=== PATIENT | female | born 1965 ===

== ENCOUNTER 2017-09-30 14:17 | Inpatient (IN) | payer MEDICAID ==
[~2017-09-30] VITALS: Ht 154.9 cm; Wt 100.0 kg
--- NOTE | ~2017-09-30 | HEMODYNAMI ---
PATIENT:CANDELAIRO FRANCOIS MEDICAL RECORD: [id number] : 69 LOCATION:[facility]# [id number] ADMISSION DATE: 09/30/17 Generatedon:09/30/201715:25 Patient name: CANDELARIO FRANCOIS Patient #: [id number] SSN: D OB: 1965 Date of study: 09/30/2017 Page: Of Hemodynamic Procedure Report Patient Data Patient Demographics Procedure consent was obtained First Name: CANDELARIO Gender: Female Last Name: PRISCILA : 1965 Patient #: [id number] Age: 52 year(s) Race: Unknown Additional ID: [id number] Contact details [address]: [address] [place] [address] State: [place] City: [place] Zip code: [address] Admission Admission Data Admission Date: 09/30/2017 Admission Time: 14:50 Room #: [facility] Procedure Procedure Types Cath Procedure Diagnostic Procedure [facility] w/Coronaries Procedure Description Procedure Date Procedure Date: 09/30/2017 Procedure Start Time: 15:04 Procedure End Time: 15:21 Procedure Staff Name Function Mikhail Nicole MD Performing Physician Hailey Pino RT Monitor Nava Stark RT Scrub Eulalio Christine RN Nurse Procedure Data Cath Procedure Fluoroscopy Diagnostic fluoroscopy Total fluoroscopy Time: 5.7 time: 5.7 min min Diagnostic fluoroscopy Total fluoroscopy dose: 729 dose: 729 mGy mGy Contrast Material Contrast Material Type Amount (ml) Isovue 300 55 Entry Location Entry Primary Successful Side Size Upsize Upsize Entry Closure [place] ccessful Closure Location (Fr) 1 (Fr) 2 (Fr) Remarks Device Remarks Radial Right 6 Fr Mechanical artery Short Compression Estimated blood loss: 5 ml Diagnostic catheters Device Type Used For End Catheter Placement DIAGNOSTIC [place] 110cm 5 Multi-vessel Fr catheter ([id number]) Angiography Procedure Complications No complications Procedure Medications Medication Administration Route Dosage Oxygen etCO2 Nasal cannula 2 l/min Heparin Flush Bag added to field 2 bags (1000units/500ml NS) 0.9% NaCl I.V. 100 ml/hr Radial Cocktail added to field 1 syringe (Verapomil 2mg/Nitro 400mcg/Heparin 1500units) Fentanyl I.V. 50 mcg Versed I.V. 1 mg Benadryl I.V. 50 mg Radial Cocktail I.A. 1 syringe (Verapomil 2mg/Nitro 400mcg/Heparin 1500units) Fentanyl I.V. 50 mcg Versed I.V. 1 mg Hemodynamics Rest Heart Rate: 70 (bpm) Pressure Samples Time Site Value (mmHg) Purpose Heart Use Rate(bpm) 15:08 LV 112/8,11 EDP 77 15:08 AO 132/100(115) Pullback 94 Gradients Valve Time Site Site 2 Mean SEP/DFP Peak To Heart Use 1 (mmHg) (sec/min) Peak Rate (mmHg) (bpm) Aortic 15:08 LV AO 94 132/100(115) Snapshots Pre Cath Intra NCS Post Cath Vital Signs Time Heart Resp SPO2 etCO2 NIBP (mmHg) Rhythm Pain Sedation Rate (ipm) (%) (mmHg) Status Level (bpm) 15:00:48 71 18 99 0 160/102(148) NSR 0 (11) 10(A) , No pain 15:05:36 76 17 95 0 123/90(107) NSR 0 (11) 10(A) , No pain 15:10:25 81 16 86 0 133/87(114) NSR 0 (11) 9(A) , No pain 15:15:14 83 16 97 0 133/83(105) NSR 0 (11) 9(A) , No pain 15:20:03 79 16 99 0 132/87(115) NSR 0 (11) 9(A) , No pain Medications Time Medication Route Dose Verified Delivered Reason Notes Effectiveness by by 15:00:51 Oxygen etCO2 2 l/min Mikhail Tsai Nasal Bonnie Christine RN cannula 15:01:01 Heparin Flush added 2 bags Mikhail Tsai used for Bag to Bonnie Christine RN procedure (1000units/500ml field [place]AP[place]AN NS) 15:02:01 0.9% NaCl I.V. 100 Mikhail Eulalio Per ml/hr Bonnie Christine RN physician 15:02:09 Radial Cocktail added 1 Mikhail Eulalio used for (Verapomil to syringe Bonnie Christine RN procedure 2mg/Nitro field [place] 400mcg/Heparin 1500units) 15:04:00 Fentanyl I.V. 50 mcg Mikhail Eulalio for sedation Bonnie Christine RN, MD 15:04:07 Versed I.V. 1 mg Mikhail Eulalio for sedation Bonnie Christine RN, MD 15:07:05 Benadryl I.V. 50 mg Mikhail Eulalio Per Bonnie Christine RN physician 15:08:23 Radial Cocktail I.A. 1 Mikhail Mikhail for (Verapomil syringe Bonnie Nicole MD vasodilation 2mg/Nitro 400mcg/Heparin 1500units) 15:08:32 Fentanyl I.V. 50 mcg Mikhail Eulalio for sedation Bonnie Christine RN, MD 15:08:35 Versed I.V. 1 mg Mikhail Eulalio for sedation Bonnie Christine RN, MD Procedure Log Time Note 14:40:37 Eulalio Christine RN sent for patient. Start room use. 14:47:28 Signed procedure consent form obtained from patient. 14:47:32 H&P Date Dictated: 09/30/2017 ER History on chart.. 14:47:38 Time tracking: Call back (After hours or weekends) 14:47:47 Plan of Care:Hemodynamics will remain stable., Cardiac rhythm will remain stable., Comfort level will be maintained., Respiratory function will remain adequate., Patient/ family verbilizes understanding of procedure., Procedure tolerated without complication., Recovers from procedure without complications.. 14:52:10 Patient received from ED to CCL 1 Alert and oriented. Tansferred to table in Supine position. 14:52:11 Warm blankets applied, and simona hugger turned on for patient comfort. 14:52:12 Correct patient and procedure confirmed by team. 14:52:14 ECG and BP/O2 sat monitors applied to patient. 14:59:40 Vital chart was started 14:59:42 Baseline sample Acquired. 14:59:46 Rhythm: sinus rhythm 14:59:47 Full Disclosure recording started 14:59:47 Pre-procedure instructions explained to patient. 14:59:48 Pre-op teaching completed and patient verbalized understanding. 14:59:50 Family in waiting room. 14:59:54 Patient NPO since Midnight. 14:59:58 Is the patient allergic to Iodine/contrast media? No. 14:59:59 Was the patient premedicated? No 15:00:10 Is patient on blood thinner?Yes 15:00:13 ACC The patient was administered the following blood thiners within the last 24 hours: ACCPlavix 15:00:15 Patient diabetic? Yes. 15:00:16 If diabetic: On Metformin? Yes 15:00:19 If on Metformin: Last Dose? 09/29/2017 15:00:21 Previous problem with sedation/anesthesia? No ? 15:00:23 Snore? Yes 15:00:24 Sleep apnea? Yes 15:00:25 Deviated septum? No 15:00:26 Opens mouth fully? Yes 15:00:27 Sticks out tongue? Yes 15:00:51 Oxygen 2 l/min etCO2 Nasal cannula was administered by Eulalio Christine RN; ; 15:01:01 Heparin Flush Bag (1000units/500ml NS) 2 bags added to field was administered by Eulalio Christine RN; used for procedure; 15:02: 0.9% NaCl 100 ml/hr I.V. was administered by Eulalio Christine RN; Per physician; 15:02:09 Radial Cocktail (Verapomil 2mg/Nitro 400mcg/Heparin 1500units) 1 syringe added to field was administered by Eulalio Christine RN; used for procedure; 15:04:00 Fentanyl 50 mcg I.V. was administered by Eulalio Christine RN; for sedation; 15:04:05 Airway obstruction? No ? 15:04:07 Versed 1 mg I.V. was administered by Eulalio Christine RN; for sedation; 15:04:08 Dentures? No ? 15:04:11 Pre procedure: right dorsailis pedis pulse 2+ Normal; easily identifiable; not easily obliterated 15:04:14 Pre procedure: left dorsailis pedis pulse 2+ Normal; easily identifiable; not easily obliterated 15:04:18 Patient pain scale 0/10 ?. 15:04:24 IV patent on arrival in right antecubital with 0.9% NaCl at [facility]. 15:04:27 Lab results completed and on chart. 15:04:28 Alarms reviewed by RAllegra NAllegra 15:04:29 Sharps counted by scrub and verified by R.N. 15:04:30 Physician arrived 15:04:30 --------ALL STOP TIME OUT------ 15:04:31 Final Timeout: patient, procedure, and site verified with staff and physician. All members of the team are in agreement. 15:04:33 Right Radial & Right Groin site verified by team. 15:04:36 Physical assessment completed. ASA score P 2 - A patient with mild systemic disease as per Mikhail Nicole MD. 15:04:40 Sedation plan: IV Moderate Sedation Medication:Versed, Fentanyl 15:04:43 Use device set Radial Dx or PCI 15:04:44 ACIST Syringe (02718) opened to sterile field. 15:04:44 Medline Cath Pack ([id number]) opened to sterile field. 15:04:44 Bag Decanter (2002S) opened to sterile field. 15:04:45 DIAGNOSTIC WIRE .035 260cm J wire (240826) opened to sterile field. 15:04:45 ACIST Hand Control (30949) opened to sterile field. 15:04:46 ACIST Manifold (70669) opened to sterile field. 15:04:46 Tegaderm 4 x 4 (1626W) opened to sterile field. 15:04:47 MBrace Wrist Support ([id number]) opened to sterile field. 15:04:48 SHEATH 6Fr Prelude Radial ([id number]) opened to sterile field. 15:04:52 Procedure started. 15:04:56 Local anesthetic to right radial artery with Lidocaine 2% by Mikhail Nicole MD.INITIAL ACCESS ONLY 15:05:06 A 6 Fr Short sheath was inserted into the Right Radial artery 15:06:02 BMW 190cm Maynard 2 J wire ([id number]) opened to sterile field. 15:06:03 INFLATOR Merit BasixCompak (UU2745) opened to sterile field. 15:06:43 A DIAGNOSTIC [place] 110cm 5 Fr catheter (958055) was advanced over the wire and used for Multi-vessel Angiography. 15:07:05 Benadryl 50 mg I.V. was administered by Eulalio Christine RN; Per physician; 15:08:09 LV hemodynamics recorded. 15:08:11 LV gram done using SIMMS 15:08:15 Injector settings: Ml/sec: 12, Volume: 8, 15:08:23 Radial Cocktail (Verapomil 2mg/Nitro 400mcg/Heparin 1500units) 1 syringe I.A. was administered by Mikhail Nicoel MD; for vasodilation; 15:08:29 EF : 40 % 15:08:32 Fentanyl 50 mcg I.V. was administered by Eulalio Christine RN; for sedation; 15:08:35 Versed 1 mg I.V. was administered by Eulalio Christine RN; for sedation; 15:09:40 COPILOT Valve Control (5473781) opened to sterile field. 15:09:50 RCA angiography performed. 15:09:53 Injector settings: Ml/sec: 3, Volume: 6, 15:12:25 Catheter removed. 15:12:57 GUIDE 6FR EBU 3.0 SH catheter ([id number]) opened to sterile field. 15:13:07 6 Fr EBU 3.5 SH guide catheter was inserted over the wire 15:15:08 LCA angiography performed. 15:15:11 Injector settings: Ml/sec: 3, Volume: 6, 15:17:41 Catheter removed. 15:17:52 TR BAND Standard ([id number]) opened to sterile field. 15:18:32 Sheath removed intact; hemostasis achieved with Mechanical Compression to the Right Radial artery. 15:18:34 Procedure ended.(Physican Out) 15:18:52 Fluoroscopy time 05.70 minutes. 15:19:00 Fluoroscopy dose: 729 mGy 15:19:00 Flurop Dose total: 729 15:19:28 Contrast amount:Isovue 300 55ml. 15:19:31 Sharps counted by scrub and verified by R.N. 15:19:43 Insertion/operative site no bleeding no hematoma. 15:19:49 Post right radial artery:stable 15:19:51 Post Procedure Pulses reassessed and unchanged 15:19:53 Post procedure rhythm: unchanged. 15:19:56 Estimated blood loss: 5 ml 15:20:04 Post procedure instruction explained to patient.Patient verbalizes understanding. 15:20:05 Patient needs reinforcement of post procedure teaching. 15:21:05 Procedure type changed to Cath procedure, Diagnostic procedure, LHC, LHC w/Coronaries 15:21:07 Procedure and supply charges have been captured, reviewed, submitted and are correct. 15:21:12 Procedure Complication : No complications 15:21:20 Vital chart was stopped 15:21:21 See physician's report for complete and final results. 15:21:25 Report given to PCU. 15:21:28 Patient transfered to PCU with Stretcher. 15:21:30 Procedure ended. 15:21:30 Full Disclosure recording stopped 15:21:34 End room use (Document Last) Device Usage Item Name Manufacture Quantity Catalog Number Hospital Part Current M inimal Lot# / Charge Number Stock Stock Serial# Code ACIST Syringe Acist 1 17744 147591 799413 990424 2 0 (89491) Medical Systems Inc Medline Cath Cardinal 1 [id number] [id number] 41221 059985 5 GeoPage ([id number]) Bag Decanter Microtek 1 2001S 499996 55893 300350 5 () Medical Inc. DIAGNOSTIC WIRE [place] 1 679552 082044 727121 843544 3 0 .035 260cm J wire (382905) ACIST Hand Acist 1 22102 898828 343523 869424 5 Control (73322) Medical Systems Inc ACIST Manifold Acist 1 37820 519346 164284 383734 5 (71957) Medical Systems Inc Tegaderm 4 x 4 3M 1 1626W 186291 890887 479420 5 (1626W) MBrace Wrist Advanced 1 140-0250-00 854708 78900 121594 5 Support Vascular (444003598) Dynamics SHEATH 6Fr Merit 1 [id number] 443191 756973 204330 5 Prelude Radial Medical ([id number]) BMW 190cm Torres 1 [id number] 926429 17787 520698 5 Maynard 2 J Vascular wire (4059233K) INFLATOR Merit Merit 1 IL0255 973117 131123 459530 1 5 Jovie Medical (SL4795) DIAGNOSTIC Terumo 1 98-2908 704028 656910 021726 5 [place] 110cm 5 Fr catheter (571025) COPILOT Valve Torres 1 7894527 909870 860912 607046 5 Control Vascular (0859543) GUIDE 6FR EBU Medtronic 1 [id number] 417606 44683 894109 0 3.0 SH catheter ([id number]) TR BAND Terumo 1 [id number] 583120 870938 371402 4 0 Standard ([id number]) Signature Audit [place] Stage Time Signature Unsigned Intra-Procedure 09/30/2017 Hailey Pino 3:25:17 PM RT(R) Signatures Monitor : Hailey Pino RT Signature : Date : Time : [place] [id number] [place] [address]
--- NOTE | ~2017-09-30 | EC ---
PATIENT:CANDELARIO FRANCOIS DATE OF SERVICE: 09/30/17 SEX: F MEDICAL RECORD: [id number] DATE OF : 69 LOCATION:D.M2 D.212 AGE OF PATIENT: 52 ADMISSION DATE: 09/30/17 REFERRING PHYSICIAN: INTERPRETING PHYSICIAN: FERMIN HAYWARD MD ECHOCARDIOGRAM REPORT ECHO CHARGES 4 ECHO COMPLETE Date: 10/01 CLINICAL DIAGNOSIS: STEMI ECHOCARDIOGRAPHIC MEASUREMENTS (adult normal given) AC root (d.<3.7cm) 3.7 cm LV Septum d (<1.2 cm> 1.3 cm Valve Excursion 1.6 cm LV Septum (systole) 1.6 cm Left Atria (s.<4.0cm> 3.8 cm LVPW d(<1.2cm) 1.3 cm RV (d.<2.3cm) 3.6 cm LVPW (sytole) 1.6 cm LV diastole(<5.6CM) 5.1 cm MV E-F(>70mm/sec) cm LV systole 3.4 cm LVOT Diameter 1.8 cm MV exc.(>10mm) cm Est.ejection fraction (50-75%) % DOPPLER: LVIT cm/sec A 88.0 cm/sec E 75.0 cm/sec LA cm/sec RVSP 28 mmHg LVOT 98 cm/sec AOP1/2T m/s Asc. Ao 128 cm/sec RVOT 637 cm/sec RA cm/sec PA 90 cm/sec AV Gradient Peak 6.51 mmHg AV Mean 2.77 mmHg AV Area 2.2 cm MV Gradient Peak 4.85 mmHg MV Mean 1.99 mmHg MV Area cm COMMENTS: Mechanical Assembly: 2 RAAD MACE Steam Gigger: 4 Dr. Hayward TAPE# PACS Pericardial Effusion N DATE OF SERVICE: PROCEDURE: Transthoracic echocardiogram. FINDINGS: 1. There is moderate left ventricular hypertrophy, inflow characteristics consistent with diastolic dysfunction, ejection fraction of 60% to 65%. 2. The left atrium is normal size, shape, structure, and function. 3. Aortic valve is normal. 4. The mitral valve is normal. ECHOCARDIOGRAM REPORT [id number] CANDELARIO FRANCOIS 5. The tricuspid valve has trace tricuspid regurgitation. RVSP is 28 mmHg. 6. The right ventricle is mild to moderately dilated with normal function. 7. The right atrium appears to be upper limits of normal to mildly dilated. 8. Pulmonic valve is normal. CONCLUSIONS: The patient has no evidence of significant regional wall motion abnormalities, despite the STEMI diagnosis, and had overall normal heart function with evidence of mild hypertensive heart disease. TRANSINT:[id number] Voice Confirmation ID: [id number] DOCUMENT ID: [id number] FERMIN HAYWARD MD at 0927 CC: [id number] DICTATION DATE: 10/02/17826 SENIOR TECHNOLOGIST: 10/02/17 1230 DIS IN 10/01/17 [facility] [address] [place] [address]
[2017-09-30] MEDS ORDERED: LEVOXYL25 MCG PO (14:39)
[2017-09-30] MEDS ORDERED: ZESTRIL10 MG PO (14:39)
[2017-09-30] MEDS ORDERED: HYDROCHLOROTHIA25 MG PO (14:39)
[2017-09-30] MEDS ORDERED: BAYER CHEWABLE81 MG PO (14:40)
[2017-09-30] MEDS ORDERED: HYDROCODON-ACE1 EAC7 PO (14:40)
[2017-09-30] MEDS ORDERED: PLAVIX75 MG PO (14:41)
[2017-09-30 14:52] LABS: BASOPHILS 0.3 % (0-2); HEMATOCRIT 42.1 % (36.0-48.0); HEMOGLOBIN 13.6 g/dL (12-16); IMMATURE GRANULOCYTES 0.4 % (0-5); LYMPHOCYTES 18.4 % (15-50); MCH 25.7 pg (26.0-34.0); MCHC 32.3 g/dL (31.0-37.0); MCV 79.4 fL (80.0-100.0); MEAN PLATELET VOLUME 11.4 fL (7.4-10.4); MONOCYTES 4.3 % (2-11); NEUTROPHILS 75.6 % (40-80); PLATELET COUNT 284 10x3/uL (130-400); RDW 16.5 % (11.5-14.5)
[2017-09-30 15:00] LABS: INR 0.97 (0.85-1.17); PROTIME 12.5 SECONDS (11.6-15.0)
[2017-09-30 15:05] LABS: ALBUMIN 3.5 g/dL (3.4-5.0); ALKALINE PHOSPHATASE 101 U/L (46-116); ALT (SGPT) 34 U/L (10-68); CALC OSMOLALITY 279 mosm/kg (275-300); CALCIUM 8.6 mg/dL (8.5-10.1); CARBON DIOXIDE 30.3 mmol/L (21.0-32.0); CHLORIDE - SERUM 104 mmol/L (98-107); CREATININE - SERUM 0.7 mg/dL (0.6-1.3); GLUCOSE 123 mg/dL (74-106); POTASSIUM - SERUM 4.3 mmol/L (3.5-5.1); PROTEIN - SERUM 7.3 g/dL (6.4-8.2); SODIUM 140 mmol/L (136-145); UREA NITROGEN 13 mg/dL (7-18); eGFR NON AFRICAN AMERICAN > 90 mL/min (90-120)
[2017-09-30 15:21] LABS: CKMB 5.2 U/L (0.0-3.6)
[2017-09-30 15:25] LABS: TROPONIN-I 3.118 ng/mL (0.000-0.060)
[2017-09-30 16:25] VITALS: BP 131/82; Ht 154.9 cm; Wt 100.0 kg
[2017-09-30 20:30] VITALS: BP 134/86
[2017-10-01 04:30] VITALS: BP 148/94
[2017-10-01 08:46] VITALS: BP 140/95
[2017-10-01 10:04] LABS: HEMATOCRIT 41.1 % (36.0-48.0); HEMOGLOBIN 13.5 g/dL (12-16); LYMPHOCYTES 25.4 % (15-50); MCH 26.3 pg (26.0-34.0); MCHC 32.8 g/dL (31.0-37.0); MEAN PLATELET VOLUME 11.3 fL (7.4-10.4); NEUTROPHILS 67.9 % (40-80); PLATELET COUNT 238 10x3/uL (130-400); RBC 5.14 10x6/uL (4.00-5.40)
[2017-10-01 10:25] LABS: WBC 10.4 10x3/uL (4.8-10.8)
[2017-10-01] MEDS ORDERED: LIPITOR20 MG PO (11:13)
[2017-10-01] MEDS ORDERED: ASPIRIN325 MG PO (11:14)
[2017-10-01] MEDS ORDERED: LOPRESSOR25 MG PO (11:14)
[2017-10-01] MEDS ORDERED: PLAVIX75 MG PO (11:15)
[2017-10-01 11:39] LABS: ALBUMIN 3.1 g/dL (3.4-5.0); ALKALINE PHOSPHATASE 92 U/L (46-116); ALT (SGPT) 31 U/L (10-68); CALC OSMOLALITY 284 mosm/kg (275-300); CALCIUM 8.6 mg/dL (8.5-10.1); CARBON DIOXIDE 30.6 mmol/L (21.0-32.0); CHLORIDE - SERUM 106 mmol/L (98-107); CREATININE - SERUM 0.7 mg/dL (0.6-1.3); GLUCOSE 106 mg/dL (74-106); POTASSIUM - SERUM 3.8 mmol/L (3.5-5.1); PROTEIN - SERUM 6.9 g/dL (6.4-8.2); SODIUM 143 mmol/L (136-145); UREA NITROGEN 12 mg/dL (7-18); eGFR NON AFRICAN AMERICAN > 90 mL/min (90-120)
[2017-10-01 12:36] VITALS: BP 150/94
[2017-10-04 11:17] LABS: LUPUS - INTERPRETATION Comment: (()); LUPUS - THROMBIN TIME 19.2 sec (0.0-23.0); LUPUS - dRVVT 38.2 sec (0.0-47.0); PTT-LA 36.8 sec (0.0-51.9)
== END 2017-10-01 15:04 | disposition home or self-care (01) | DRG 281 ==
LOC: D.ER 14:17 → D.SDCHOLD 14:50 → OBSVTIME 14:50 → D.M2 14:50 → OBSVTIME 19:55 → D.M2 10-01 15:04
PROVIDERS: Family Medicine; Internal Medicine Cardiovascular Disease
PROC: B2151ZZ Fluoroscopy of Left Heart using Low Osmolar Contrast (ICD-10-PCS; 2017-09-30)
PROC: 4A023N7 Measurement of Cardiac Sampling and Pressure, Left Heart, Percutaneous Approach (ICD-10-PCS; 2017-09-30)
PROC: B2111ZZ Fluoroscopy of Multiple Coronary Arteries using Low Osmolar Contrast (ICD-10-PCS; principal; 2017-09-30 15:00)
DX: I21.3 ST elevation (STEMI) myocardial infarction of unspecified site (principal); I51.81 Takotsubo syndrome